=== PATIENT | male | born 1975 | race African-American/Black ===

== ENCOUNTER 2021-06-07 07:47 | Emergency (ER) | payer OTHER ==
[~2021-06-07] VITALS: Ht 188 cm; Wt 92.0 kg
[2021-06-07 08:40] LABS: CHLORIDE 108 mEq/L (98-107)
[2021-06-07] MEDS ORDERED: NITROGLYCERIN 0.4MG TABLET SL SL PRN (09:00)
[2021-06-07 09:01] LABS: BASOPHILS % 0.6 % (0.0-2.0); EOSINOPHILS % 1.5 % (0.0-5.0); HEMATOCRIT. 42.2 % (42.0-52.0); LYMPHOCYTES % 17.9 % (20.0-50.0); MEAN CORPUSCULAR HEMOGLOBIN 27.9 pg (28.0-32.0); MEAN CORPUSCULAR VOLUME 84.2 fL (80.0-94.0); MEAN PLATELET VOLUME 8.6 fl (7.4-10.4); PLATELET 289 x1000/uL (130-400); RED BLOOD CELL COUNT 5.02 mill/uL (4.7-6.1); RED CELL DISTRIBUTION WIDTH 13.8 % (11.6-14.6)
[2021-06-07] MEDS ORDERED: ASPI-1497 MT (10:50)
[2021-06-07 13:23] VITALS: BP 130/79
== END 2021-06-07 13:29 | disposition home or self-care (01) ==
LOC: ER 07:47
DX: R07.89 Other chest pain (principal); I10 Essential (primary) hypertension; F12.10 Cannabis abuse, uncomplicated; Z87.891 Personal history of nicotine dependence
CPT/HCPCS: 36415; 71045; 80053; 83880; 84484; 85025; 85379; 93005; 93970; 99285

== ENCOUNTER 2021-06-16 20:38 | Emergency (ER) | payer OTHER, MEDICAID ==
[~2021-06-16] VITALS: Ht 177.8 cm; Wt 100.0 kg
[~2021-06-16 20:38] MED LIST: ASPI-1497 MT
[2021-06-16 23:42] LABS: BASOPHILS % 0.6 % (0.0-2.0); EOSINOPHILS % 0.7 % (0.0-5.0); HEMATOCRIT. 40.9 % (42.0-52.0); HEMOGLOBIN. 13.9 g/dL (14.0-18.0); LYMPHOCYTES % 16.1 % (20.0-50.0); MEAN CORPUSCULAR VOLUME 82.2 fL (80.0-94.0); MEAN PLATELET VOLUME 8.2 fl (7.4-10.4); MONOCYTES % 7.4 % (2.0-8.0); NEUTROPHILS % 75.2 % (40.0-76.0); PLATELET 278 x1000/uL (130-400); RED BLOOD CELL COUNT 4.98 mill/uL (4.7-6.1)
[2021-06-16 23:48] LABS: CHLORIDE 108 mEq/L (98-107)
[2021-06-17 03:25] VITALS: BP 125/87
== END 2021-06-17 03:26 | disposition home or self-care (01) ==
LOC: ER 20:38
DX: R07.89 Other chest pain (principal)
CPT/HCPCS: 36415; 71045; 80053; 83880; 84484; 85025; 93005; 99285